=== PATIENT | male | born 1995 | race Hispanic/Latino ===

== ENCOUNTER 2021-01-03 01:05 | Emergency (ER) | payer OTHER ==
[~2021-01-03] VITALS: Ht 165.1 cm; Wt 76.2 kg
[2021-01-03 01:22] VITALS: BP 107/56
== END 2021-01-03 02:39 | disposition home or self-care (01) ==
LOC: EDH 01:05
DX: R07.89 Other chest pain (principal); Z91.19 Patient's noncompliance with other medical treatment and regimen
CPT/HCPCS: 93005